=== PATIENT | male | born 1945 | race Caucasian/White ===

== ENCOUNTER → 2016-05-25 | Outpatient (CLI) | payer MEDICARE ==
[2015-10-07 12:30] VITALS: BP 110/57
[~2016-05-25] MED LIST: ACET325T9 PO; ASPI-252 PO; ASPI325T4 PO; BUDE10.22 IH; LISI-334 PO; RANI150T6 PO; TAMS0.4C97 PO
[2016-05-25 13:00] LABS: BILIRUBIN,URINE NEGATIVE (NEG); GLUCOSE,URINE NEGATIVE (NEG); NITRITE,URINE NEGATIVE (NEG); PH,URINE 5.5; PROTEIN,URINE NEGATIVE (NEG-TRACE); UROBILINOGEN,URINE 0.2 mg/dL (0.2 mg/dL)
[2016-05-25 13:09] LABS: BASO # 0.1 x10^3/uL (0.0-0.2); BASO % 1 % (0-3); EOS % 1 % (0-3); HEMATOCRIT 44.9 % (39.0-53.0); HEMOGLOBIN 14.9 g/dL (13.0-17.5); LYMPH % 28 % (24-48); MEAN CORPUSCULAR HEMOGLOBIN 31 pg (25-35); MEAN CORPUSCULAR HGB CONC 33 g/dL (31-37); MEAN CORPUSCULAR VOLUME 94 fL (79-100); MONO % 6 % (0-9); NEUT % 64 % (31-73); PLATELET COUNT 408 x10^3/uL (140-400); RED CELL DISTRIBUTION WIDTH 14.4 % (11.5-14.5); WHITE BLOOD COUNT 7.1 x10^3/uL (4.0-11.0)
[2016-05-25 13:22] LABS: BACTERIA,URINE 0 /HPF (0-FEW); RBC,URINE 0 /HPF (0-2); WBC,URINE 0 /HPF (0-4)
[2016-05-25 13:23] LABS: CALCIUM 9.8 mg/dL (8.5-10.1); CREATININE 1.4 mg/dL (0.7-1.3); POTASSIUM 4.3 mmol/L (3.5-5.1)
[2016-05-25 13:26] LABS: PROTHROMBIN TIME PATIENT 12.7 SEC (11.7-14.0)
== END | disposition home or self-care (01) ==
LOC: SURGPAT 12:11
PROVIDERS: ATTEND Urology
DX: Z01.812 Encounter for preprocedural laboratory examination (principal)
CPT/HCPCS: 36415; 80048; 81001; 85027; 85610; 85730

== ENCOUNTER 2016-06-01 10:01 | Observation (INO) | payer MEDICARE ==
[~2016-06-01] VITALS: Ht 170.2 cm; Wt 105.8 kg
[2016-06-01] VITALS (9 sets, daily range): BP systolic 99–124; BP diastolic 56–84
[~2016-06-01 10:01] MED LIST changes: +CEFTRIAXONE 1GM IVPB FOR OMNI 50 ML IV PRN; +FENTANYL PF 100 MCG/2 ML VIAL. IV PRN; +FENTANYL PF 100 MCG/2 ML VIAL. ONE; +HYDROMORPHONE 2 MG/ML VIAL. IV PRN; +IV RINGERS,LACTATED 1000ML 1,000 ML IV SCH; +LIDOCAINE 1% 1 ML SYRINGE. ID PRN; +LIDOCAINE 2% 100 MG/5 ML DISP.SYRIN. ONE; +MORPHINE SULFATE 2 MG/ML DISP.SYRIN. IV PRN; +ONDANSETRON PF 4 MG/2 ML VIAL. IV PRN; +PROCHLORPERAZINE 10 MG/2 ML VIAL. IV PRN; +PROPOFOL 20 ML IV ONE
[2016-06-01] MEDS ORDERED: SEVOFLURANE 61 TO 120 MINUTES. IH ONE (12:15)
[2016-06-01] MEDS ORDERED: DEXAMETHASONE SOD PHOS 20 MG/5 ML VIAL. ONE (12:15)
[2016-06-01] MEDS ORDERED: EPHEDRINE SULFATE 50 MG/ML VIAL. ONE (12:16)
[2016-06-01] MEDS ORDERED: PHENYLEPHRINE in 0.9% NACL PF 1 MG/10 ML DISP.SYRIN. IV ONE ×2 (12:27→12:48)
[2016-06-01] MEDS ORDERED: ONDANSETRON PF 4 MG/2 ML VIAL. ONE (12:47)
[2016-06-01] MEDS ORDERED: HYDROCODONE/APAP 5/325MG TABLET. PO PRN (13:15)
[2016-06-01] MEDS: FENTANYL PF 100 MCG/2 ML VIAL. IV PRN ×2 (13:15→13:41)
[2016-06-01] MEDS ORDERED: MAG HYDROX/AL HYDROX/SIMETH 30 ML ORAL.SUSP PO PRN (13:15)
[2016-06-01] MEDS ORDERED: NALOXONE 0.4 MG/ML VIAL. IV PRN (13:15)
[2016-06-01] MEDS ORDERED: ACETAMINOPHEN 325 MG TABLET. PO PRN (13:15)
[2016-06-01] MEDS ORDERED: ONDANSETRON PF 4 MG/2 ML VIAL. IV PRN (13:15)
[2016-06-01] MEDS ORDERED: MORPHINE SULFATE 2 MG/ML DISP.SYRIN. IV PRN (13:15)
[2016-06-01] MEDS ORDERED: MAGNESIUM HYDROXIDE 2,400 MG/30 ML ORAL.SUSP. PO PRN (13:15)
[2016-06-01] MEDS ORDERED: 0.9 % SODIUM CHLORIDE 10 ML DISP.SYRIN. IV PRN (13:15)
[2016-06-01] MEDS ORDERED: DIPHENHYDRAMINE HCL 25 MG CAPSULE PO PRN (13:15)
--- NOTE | 2016-06-01 13:18 | PDOC ---
BRIEF OPERATIVE NOTE Date: Jun 01, 2016 Pre-Op Diagnosis BPH Post-Op Diagnosis Same Procedure Performed TURP Surgeon Gold Anesthesia Type: General Blood Loss 100cc Specimens Obtained Prostate chips Findings same Complications none Additional Remarks Tolerated well RHETT SNOW DO Jun 01, 2016 13:18
[2016-06-01] MEDS: POTASSIUM CL 20MEQ-0.45% NACL 1,000 ML IV SCH (18:44)
--- NOTE | 2016-06-01 18:46 | OP ---
DATE OF SURGERY: 06/01/2016 PREOPERATIVE DIAGNOSIS: Benign prostatic hyperplasia, urinary frequency, nocturia. POSTOPERATIVE DIAGNOSIS: Benign prostatic hyperplasia, urinary frequency, nocturia. PROCEDURE: Cystoscopy, transurethral resection of prostate, TUR bladder neck. SURGEON: Rhett Snow DO. ANESTHESIA: General. ESTIMATED BLOOD LOSS: 100 mL. DRAINS: 22-Citizen Of [place] 3-way Shetty catheter to continuous bladder irrigation. INDICATIONS AND JUDGMENT: This is a 70-year-old male with a history of BPH. He has developed difficulty voiding with severe nocturia and urinary frequency. He was on maximum medical therapy and it was felt that he would benefit from transurethral resection of the prostate. The procedure was explained to the patient as well as possible risks and complications. He appeared to understand and was agreeable. DESCRIPTION OF PROCEDURE: The patient was preloaded with IV antibiotics. He was then taken to the operating room and placed on the operating room table, given a general anesthetic and then placed in a dorsolithotomy position using Juan stirrups since we do not have a cystoscopy table. Perineum and genitalia prepped and draped in sterile fashion. Rigid cystoscopy was performed. The urethra was normal course and caliber. The prostate fossa was visualized. He had an obstructing prostate gland, also median bar configuration and I was not able to advance the resectoscope through this narrow bladder opening. Therefore, I had to fit the resectoscope with a Wray knife and incise the median bar configuration at the 7 o'clock and 5 o'clock position to open the bladder neck. I was unable to use the 26-Citizen Of [place] resectoscope sheath fitted with an Redknee resectoscope and began to resect the prostate at the bladder neck down to the capsular fibers of the prostate. Bleeding vessels were coagulated as they were encountered. The resectoscope was then moved to mid prostatic fossa and in a same similar fashion, the adenomatous tissue was resected down to the capsular fibers of the prostate in a circumferential manner. I cauterized any bleeding vessels as they were encountered. The third and final stage of the resection was carried out at the apex. Careful attention was directed to the verumontanum and to the external sphincter, so as not to harm those structures. The adenomatous tissue was resected as previously described. Bleeding vessels were cauterized. I then used the [facility] evacuator to remove all the prostate chips from the bladder and these chips were sent to pathology for permanent section. Hemostasis was satisfactory. Therefore, the instruments were removed. A well-lubricated 22-Citizen [place] 3-way Shetty catheter was advanced into the urethra and into the bladder. The 20 mL balloon was filled and this was connected to continuous bladder irrigation using normal saline. The patient tolerated the procedure well. RHETT SNOW DO DR: NANCY/elise JOB#: [id number] / [id number]
[2016-06-01] MEDS: BUDESONIDE 0.5 MG/2 ML NEBU NEB SCH (19:55)
[2016-06-01] MEDS: ALBUTEROL SULFATE 2.5 MG/3 ML NEBU. NEB SCH (19:55)
[2016-06-01] MEDS ORDERED: NON FORMULARY ITEM (Budesonide/Formoterol Fumarate (Symbicort 80-4.5 Mcg Inhaler) 2 PUFF) IH SCH (21:00)
[2016-06-01] MEDS ORDERED: TAMSULOSIN 0.4 MG CAP.ER.24H. PO SCH (21:00)
[2016-06-01] MEDS: DOCUSATE SODIUM 100 MG CAPSULE PO SCH (21:56)
[2016-06-02 03:00] VITALS: BP 104/66
[2016-06-02 05:07] LABS: BASO % 0 % (0-3); EOS % 0 % (0-3); HEMATOCRIT 39.2 % (39.0-53.0); HEMOGLOBIN 12.8 g/dL (13.0-17.5); LYMPH % 8 % (24-48); MEAN CORPUSCULAR HEMOGLOBIN 31 pg (25-35); MEAN CORPUSCULAR HGB CONC 33 g/dL (31-37); MEAN CORPUSCULAR VOLUME 96 fL (79-100); MONO % 4 % (0-9); NEUT % 88 % (31-73); PLATELET COUNT 375 x10^3/uL (140-400); RED BLOOD COUNT 4.09 x10^6/uL (4.30-5.70); RED CELL DISTRIBUTION WIDTH 14.3 % (11.5-14.5); WHITE BLOOD COUNT 12.2 x10^3/uL (4.0-11.0)
[2016-06-02 05:33] LABS: CREATININE 1.2 mg/dL (0.7-1.3); GFR 59.7; POTASSIUM 5.1 mmol/L (3.5-5.1)
[2016-06-02] MEDS ORDERED: LEVOFLOXACIN 500 MG TABLET PO SCH (06:00)
[2016-06-02 07:00] VITALS: BP 120/73
[2016-06-02] MEDS: ALBUTEROL SULFATE 2.5 MG/3 ML NEBU. NEB SCH ×3 (07:53→15:19)
[2016-06-02] MEDS: BUDESONIDE 0.5 MG/2 ML NEBU NEB SCH (07:53)
[2016-06-02] MEDS: DOCUSATE SODIUM 100 MG CAPSULE PO SCH (08:36)
[2016-06-02] MEDS: POTASSIUM CL 20MEQ-0.45% NACL 1,000 ML IV SCH (08:37)
--- NOTE | 2016-06-02 08:43 | PDOC ---
Provider Note Provider Note Urology: POD#1 urine clear, vitals stable, neg complaints IMPRESSION: good post op progress Plan: D/C bennett, IV possible home later today RHETT SNOW DO Jun 02, 2016 08:43
[2016-06-02 08:46] LABS: PLT ESTIMATE ADEQUATE (ADEQUATE)
[2016-06-02] MEDS ORDERED: LISINOPRIL 10 MG TABLET PO SCH (09:00)
[2016-06-02 11:00] VITALS: BP 124/69
--- NOTE | 2016-06-02 13:51 | PATHOLOGY ---
PATHOLOGY REPORT * * * * * * * * FINAL DIAGNOSIS: Prostate tissue, transurethral resection: - Nodular prostatic glandular and stromal hyperplasia. COMMENT: There is no evidence of malignancy. (JPM:csd; d/t: 06/02/2016) REPORT ELECTRONICALLY SIGNED BY: Elias Priest M.D. DATE/TIME: 06/02/2016 13:50 * * * * * * * * GROSS PATHOLOGY: The specimen is received in formalin, labeled "Remi Lugo and prostate chips." Received is a 12 g, 7.8 x 6.3 x 1.0 cm aggregate of pink-torres, focally cauterized, and rubbery soft tissue fragments. The specimen is entirely submitted in cassettes A1-A6. (TTL; 06/01/2016) INITIAL CPT CODE(S): A; 13605 Professional services performed by [facility] [address] Technical services performed by [facility] at [address] [place] [address], [address], [place] [address]. SPECIMEN(S) RECEIVED: Cesar.Prostate chips CLINICAL HISTORY: Urinary frequency, nocturia PATIENT: REMI LUGO /AGE: 4 1945 (Age: 70) PATIENT #: [id number] ALT CASE #: SPECIMEN COLLECTION DATE: 06/01/2016 SPECIMEN RECEIVED DATE: 06/01/2016 [facility] - [address] [place] [address] - PHONE: [phone] * * * END OF REPORT * * *
--- NOTE | 2016-06-02 15:19 | PDOC ---
Provider Note Provider Note Urology: voiding without problems, urine color good Path: pending Plan: home Rx Cipro, Lortab 5 instructions given f/u 3 weeks in office RHETT SNOW DO Jun 02, 2016 15:19
--- NOTE | 2016-06-02 15:22 | DISCH ---
DISCHARGE INSTRUCTIONS Condition on Discharge Condition on Discharge: Stable Activity After Discharge Activity Instructions for Disc: Avoid exertion Lifting Instructions after Dis: No heavy lifting Sexual Activity Restrictions: not for 6 weeks Diet after Discharge Diet after Discharge: Regular Additional Diet Restrictions: Hold Aspirin for 2 weeks Wound Incision Care Other wound/incision instructi: drink 6 12oz glasses of water daily Contacting the after DC Call your doctor for: Concerns you may have Follow-Up Follow up with: Dr Snow in 3 weeks RHETT SNOW DO Jun 02, 2016 15:22
--- NOTE | 2016-06-02 15:28 | PDOC ---
Provider Note Provider Note Discharge summary dictated. RHETT SNOW DO Jun 02, 2016 15:28
--- NOTE | 2016-06-02 19:16 | DS ---
DATE OF DISCHARGE: 06/02/2016 FINAL DIAGNOSES: 1. Benign prostatic hyperplasia. 2. Difficulty voiding. SECONDARY DIAGNOSIS: Hypertension. HOSPITAL COURSE: This is a summary of the patient's hospital course. Well documented history and physical can be found within the body of the chart. Briefly, this 70-year-old male was having extreme urinary frequency and difficulty voiding. He underwent evaluation in the office, was found to have an enlarged prostate with visual obstruction of bladder outlet. It was felt that he would benefit from transurethral resection of prostate. The procedure was explained to the patient. He appeared to understand and was agreeable. The patient was brought to the hospital on 06/01/2016. He underwent transurethral resection of the prostate under general anesthesia. He tolerated the procedure well. At the conclusion, a 22-[place] 3-way Shetty catheter was left in place connected to continuous bladder irrigation. The patient was placed in observation bed. Overnight, he had no problems or difficulties. The following morning on 06/02/2016, the urine was clear. Therefore, his Shetty catheter was removed for a voiding trial. Later that afternoon, the patient was voiding satisfactorily. He only had a slight color to the urine. He had a good strong stream and was voiding satisfactorily; therefore, it was felt that he could go home. The patient was given discharge instructions with respect to diet and activity. He will resume all his home meds except for aspirin. He was given a prescription for Cipro 500 mg p.o. b.i.d. for 5 days. Also, he requested a prescription for hydrocodone for his occasional headache. The patient was instructed to follow up with me in the office in 3 weeks. His pathology report is pending. His condition upon discharge was satisfactory. RHETT SNOW DO DR: NANCY/elise JOB#: [id number] / [id number]
== END 2016-06-03 20:58 | disposition home or self-care (01) ==
LOC: SURG 10:01 → 4 NORTH 13:46
PROVIDERS: ADMIT Urology; ATTEND Urology
DX: N40.1 Benign prostatic hyperplasia with lower urinary tract symptoms (principal); R35.0 Frequency of micturition; R35.1 Nocturia; I10 Essential (primary) hypertension; N32.0 Bladder-neck obstruction
CPT/HCPCS: 36415; 52601; 80048; 85007; 85027; 88305; 94250; 94640; 94760; G0378; G0379; J0690; J1100; J2370; J2405; J2704; J3010; J7120

== ENCOUNTER → 2018-06-04 | Outpatient (CLI) | payer MEDICARE ==
[~2018-06-04] MED LIST changes: -ASPI325T4 PO; +ASPI325T8 PO; +BUDE10.2 IH; -CEFTRIAXONE 1GM IVPB FOR OMNI 50 ML IV PRN; +CELE200C PO; -FENTANYL PF 100 MCG/2 ML VIAL. IV PRN; -FENTANYL PF 100 MCG/2 ML VIAL. ONE; +FINA5TAB4 PO; -HYDROMORPHONE 2 MG/ML VIAL. IV PRN; -IV RINGERS,LACTATED 1000ML 1,000 ML IV SCH; -LIDOCAINE 1% 1 ML SYRINGE. ID PRN; -LIDOCAINE 2% 100 MG/5 ML DISP.SYRIN. ONE; +MELO15TA6 PO; -MORPHINE SULFATE 2 MG/ML DISP.SYRIN. IV PRN; -ONDANSETRON PF 4 MG/2 ML VIAL. IV PRN; -PROCHLORPERAZINE 10 MG/2 ML VIAL. IV PRN; -PROPOFOL 20 ML IV ONE; +RANI-376 PO; -RANI150T6 PO; +TRAM50TA PO
--- NOTE | 2018-06-04 15:37 | KCIC ---
EXAM: MRI RIGHT SHOULDER WITHOUT CONTRAST DATE: 06/04/2018 2:00 PM COMPARISON: Shoulder radiographs 06/03/2018 INDICATION: Right shoulder pain, decreased range of motion. Popping sensation with motion. TECHNIQUE: Multiplanar, multisequence MR imaging of the right shoulder was performed without IV contrast. Specifically coronal and sagittal T1/T2 FS and PD FS axial images of the right shoulder were obtained. FINDINGS: Mild AC joint degenerative changes are seen with small associated osteophytes. Type I acromion with associated acromial remodeling from articulation with the high riding humeral head. Subacromial-subdeltoid bursal distention from bursitis and full-thickness rotator cuff tear. There is a full-thickness, full width tear of the supraspinatus tendon and full-thickness, full width tear of the infraspinatus tendon, with retraction to the level of the AC joint (just lateral to the glenoid). In AP dimension this tear measures approximately 4.7 cm. Moderate increased signal and thickening of the subscapularis tendon, consistent with tendinosis, without evidence for tear. Mild to moderate atrophy of the supraspinatus and infraspinatus muscle bellies with only mild fatty conversion. Moderate to severe fatty atrophy of the teres minor muscle belly however no definite mass is seen within the quadrilateral space. No discrete labral tear is identified. The extra-articular long head biceps is seen within the bicipital groove, without evidence for dislocation. There is increased signal and thickening of the intra-articular segment of the long head biceps tendon consistent with moderate tendinosis. No evidence for AVN or fracture. IMPRESSION: 1. Full-thickness, full width tear of the supraspinous infraspinatus tendons with retraction to the AC joint (just lateral to the glenoid). This measures approximately 4.7 cm in AP dimension. Associated atrophy of the supraspinatus and infraspinatus muscle bellies. 2. Moderate to severe fatty atrophy of the teres minor muscle belly although the tendon is grossly intact and there is no mass identified within the quadrilateral space. 3. Moderate intra-articular biceps tendinosis. Electronically signed by: Stone Peacock MD (06/04/2018 3:32 PM) [id number]
== END | disposition home or self-care (01) ==
LOC: KCIC MRI 13:11
PROVIDERS: ATTEND Orthopaedic Surgery
DX: M75.21 Bicipital tendinitis, right shoulder (principal); M75.101 Unspecified rotator cuff tear or rupture of right shoulder, not specified as traumatic; M62.511 Muscle wasting and atrophy, not elsewhere classified, right shoulder; M19.011 Primary osteoarthritis, right shoulder; M25.711 Osteophyte, right shoulder; M75.51 Bursitis of right shoulder
CPT/HCPCS: 73221

== ENCOUNTER → 2018-06-24 | Outpatient (CLI) | payer MEDICARE ==
[~2018-06-24] MED LIST changes: -CELE200C PO; -MELO15TA6 PO; -RANI-376 PO; +RANI150T21 PO
--- NOTE | 2018-06-24 10:04 | EKG ---
[facility] [address] [place] [address] Test Date: 2018-06-24 Test Time: 10:02:20 Pat Name: VINITA NATION Department: Room: Gender: M [place]: : 1945 Requested By: KAVYA LUTZ Order Number: [id number] Reading MD: Taco Zapata MD Measurements Intervals [place] Rate: 54 P: 0 PA: 138 QRS: 19 QRSD: 94 T: 40 QT: 374 QTc: 356 Interpretive Statements SINUS RHYTHM Electronically Signed On 06-25-2018 10:37:59 [employer] ARCHITECT by Taco Zapata MD
[2018-06-24 10:28] LABS: BASO % 1 % (0-3); EOS % 1 % (0-3); HEMATOCRIT 41.8 % (39.0-53.0); HEMOGLOBIN 13.5 g/dL (13.0-17.5); LYMPH # 1.1 x10^3/uL (1.0-4.8); LYMPH % 14 % (24-48); MEAN CORPUSCULAR HEMOGLOBIN 32 pg (25-35); MEAN CORPUSCULAR HGB CONC 32 g/dL (31-37); MEAN CORPUSCULAR VOLUME 98 fL (79-100); MONO # 0.4 x10^3/uL (0.0-1.1); MONO % 6 % (0-9); NEUT # 6.1 x10^3uL (1.8-7.7); NEUT % 79 % (31-73); PLATELET COUNT 397 x10^3/uL (140-400); RED BLOOD COUNT 4.28 x10^6/uL (4.30-5.70); RED CELL DISTRIBUTION WIDTH 14.1 % (11.5-14.5); WHITE BLOOD COUNT 7.7 x10^3/uL (4.0-11.0)
[2018-06-24 10:38] LABS: ALBUMIN 3.8 g/dL (3.4-5.0); CALCIUM 9.5 mg/dL (8.5-10.1); CREATININE 1.4 mg/dL (0.7-1.3); GFR 49.7; POTASSIUM 4.4 mmol/L (3.5-5.1)
[2018-06-24 10:46] LABS: BILIRUBIN,URINE NEGATIVE (NEG); CLARITY,URINE CLEAR; COLOR,URINE YELLOW; NITRITE,URINE NEGATIVE (NEG); PH,URINE 5.5; PROTEIN,URINE NEGATIVE (NEG-TRACE); UROBILINOGEN,URINE 0.2 mg/dL (0.2 mg/dL)
[2018-06-24 10:48] LABS: PROTHROMBIN TIME PATIENT 12.9 SEC (11.7-14.0)
--- NOTE | 2018-06-24 11:10 | RAD ---
CHEST PA LATERAL CLINICAL INDICATION: PRE OP... HX OF HYPERTENSION, HX OF HYPERLIPIDEMIA COMPARISON: 08/21/2013 FINDINGS: Heart is normal in size. Mild stable left lung base patchy opacity most likely prominent epicardial fat pad. No focal consolidation. No pneumothorax or pleural effusion. Visualized bony thorax is within normal limits. IMPRESSION: No acute pulmonary process. Electronically signed by: Ld Castillo DO (06/24/2018 11:06 AM) [id number]
[2018-06-24 11:39] LABS: RBC,URINE 0 /HPF (0-2); SQUAMOUS EPITHELIAL CELL,UR FEW /LPF; WBC,URINE OCC /HPF (0-4)
[2018-06-24 11:40] LABS: BACTERIA,URINE FEW /HPF (0-FEW)
--- NOTE | 2018-07-01 14:37 | NUR ---
FAXED PRE - OP TEST REPORTS TO - PCP AT 9033 AND 'S OFFICE AT 7763 06/25/2018 AND RECEIVED TRANSMITTAL CONFIRMATIONS IN BOTH OFFICES.
--- NOTE | 2018-07-01 14:56 | NUR ---
PATIENT'S MEDICAL CLEARANCE NOTES FROM WAS RECEIVED 06/26/2018 FROM CYRUS STEEN OF .
== END | disposition home or self-care (01) ==
LOC: SURGPAT 08:45
PROVIDERS: ATTEND Orthopaedic Surgery Sports Medicine
DX: Z01.818 Encounter for other preprocedural examination (principal); M19.011 Primary osteoarthritis, right shoulder; I10 Essential (primary) hypertension; E78.5 Hyperlipidemia, unspecified
CPT/HCPCS: 36415; 71046; 80048; 81001; 82040; 85025; 85610; 85651; 85730; 87641; 93005

== ENCOUNTER 2021-08-09 06:44 | Outpatient (CLI) | payer MEDICARE ==
[2021-08-09] VITALS (13 sets, daily range): BP systolic 90–131; BP diastolic 51–78
[~2021-08-09] VITALS: Ht 172.7 cm; Wt 102.2 kg
[~2021-08-09 06:44] MED LIST changes: +CELE200C PO; -LISI-334 PO; +LISI20TA18 PO; +MELO15TA6 PO; +RANI-376 PO; -RANI150T21 PO
[2021-08-09 07:34] LABS: HEMOGLOBIN 12.1 g/dL (13.0-17.5); RED BLOOD COUNT 3.65 x10^6/uL (4.30-5.70); RED CELL DISTRIBUTION WIDTH 13.6 % (11.5-14.5); WHITE BLOOD COUNT 5.5 x10^3/uL (4.0-11.0)
[2021-08-09 07:40] LABS: CALCIUM 9.5 mg/dL (8.5-10.1); CREATININE 1.7 mg/dL (0.7-1.3); GFR 39.4; POTASSIUM 4.4 mmol/L (3.5-5.1)
[2021-08-09] MEDS ORDERED: LIDOCAINE 1% Multi-Dose 20 ML VIAL. ONE (07:40)
[2021-08-09] MEDS ORDERED: HEPARIN for ARTERIAL LINE 1,500 ML ONE (07:40)
[2021-08-09] MEDS ORDERED: IODIXANOL 320 MG/ML 100 ML VIAL. ONE (07:40)
[2021-08-09] MEDS ORDERED: ATOR20TA58 PO (08:14)
[2021-08-09] MEDS ORDERED: FURO40TA4 PO (08:14)
[2021-08-09] MEDS ORDERED: OXYB10TA26 PO (08:14)
[2021-08-09] MEDS ORDERED: DILT120C99 PO (08:14)
[2021-08-09] MEDS ORDERED: CYAN500T17 PO (08:14)
[2021-08-09] MEDS ORDERED: FINA5TAB4 PO (08:14)
[2021-08-09] MEDS ORDERED: FAMO20TA5 PO (08:14)
[2021-08-09] MEDS ORDERED: HEPARIN for IV BOLUS 10,000 UNIT/10 ML VIAL. ONE (08:25)
[2021-08-09] MEDS ORDERED: MIDAZOLAM HCL/PF 2 MG/2 ML VIAL. ONE (08:25)
[2021-08-09] MEDS ORDERED: VERAPAMIL 5 MG/2 ML VIAL. ONE (08:25)
[2021-08-09] MEDS ORDERED: fentaNYL PF VIAL 100 MCG/2 ML VIAL ONE (08:25)
[2021-08-09] MEDS ORDERED: NITROGLYCERIN 200 MCG/2 ML SYRINGE FOR CATH/VASC LAB. ONE (08:26)
[2021-08-09] MEDS ORDERED: MIDAZOLAM HCL/PF 2 MG/2 ML VIAL. IV ONE (09:15)
[2021-08-09] MEDS ORDERED: IODIXANOL 320 MG/ML 100 ML VIAL. IART ONE (09:15)
[2021-08-09] MEDS ORDERED: VERAPAMIL 5 MG/2 ML VIAL. IART ONE (09:15)
[2021-08-09] MEDS ORDERED: IV NORMAL SALINE 1000ML BAG 1,000 ML IV ONE (09:15)
[2021-08-09] MEDS ORDERED: fentaNYL PF VIAL 100 MCG/2 ML VIAL IV ONE (09:15)
[2021-08-09] MEDS ORDERED: NITROGLYCERIN 200 MCG/2 ML SYRINGE FOR CATH/VASC LAB. IART ONE (09:15)
[2021-08-09] MEDS ORDERED: HEPARIN for IV BOLUS 10,000 UNIT/10 ML VIAL. IART ONE (09:15)
[2021-08-09] MEDS ORDERED: LIDOCAINE 1% Multi-Dose 20 ML VIAL. INJ ONE (09:15)
[2021-08-09] MEDS ORDERED: CONTRAST GIVEN. MC PRN (09:30)
--- NOTE | 2021-08-09 09:53 | CARD ---
MR#: [id number] Date of Study: 08/09/2021 Ordering Physician: VINNY ZAPATA, Referring Physician: VINNY ZAPATA, Tech: RICHARD SMITH APPROVED REPORT Technologist: RICHARD SMITH Nurse: Prudence Calzada RN Procedure(s) performed: MODERATE SEDATION TIME:44 MIN FLUORO TIME: 6.0 MIN DOSE:47 GYCM2 CONTRAST: 24CC VISI RHC, LHC, Coronary angiography HISTORY hypertension: dyslipidemia. INDICATION The indication(s) include : unstable angina , dyspnea. [facility] Clinical Frailty Scale [facility] Clinical Frailty Scale: Moderately Frail Heart Failure Heart Failure: Yes If Yes, Newly Diagnosed: Yes If Yes, HF Type: Diastolic If Yes, NYHA Class: Class II CASE TECHNIQUE IV conscious sedation was used throughout procedure with appropriate monitoring and was performed in the presence of a registered nurse who was an independent trained observer other than the physician p erforming the procedure. During this case, Fluoroscopy and low osmolar contrast were used for imaging . Specimen(s) Removed: N/A Estimated Blood loss: 15 cc's. PROCEDURE NARRATIVE Clinical information: 75-year-old male who was seen in the office due to persistent exertional dyspnea and despite adequate medical therapy he was having continued symptoms and therefore he was taken to the catheterization l aboratory for further evaluation and treatment. Procedure details: After appropriate informed consent the right arm and wrist were prepped and draped in usual sterile f ashion. Under 1% lidocaine local anesthesia a 6 Portuguese sheath was placed in the right radial artery. Next, a 5 Portuguese sheath was placed in the right brachial vein via the modified Seldinger technique with ultrasound guidance. Next, 6 Portuguese TIG catheter was used to perform diagnostic coronary angio graphy. Left ventricular end-diastolic pressure was obtained with a TIG catheter and a pullback was performed. A 5 Portuguese PA catheter was advanced to the right heart chambers and pressures and saturat ions were obtained. At case completion all catheters and sheaths were removed and hemostasis was ach ieved via manual compression in the brachial vein site and a Terumo radial band at the right radial a rterial site. No acute complications. Findings: Aorta 80/40 LVEDP 8 mmHg No LV to aortic pullback gradient Right heart catheterization RA 7 mmHg RV 31/5/12 PA 26/11/17 Wedge 10 mmHg FA saturation 96% PA saturation 79% Chong cardiac output 8.6 L/min Chong cardiac index 4.0 Coronary angiography: Left main is a long large caliber vessel with normal angiographic appearance LAD is a moderate caliber vessel with normal angiographic appearance Left circumflex is a large-caliber vessel with normal angiographic appearance RCA is a moderate to large caliber vessel with normal angiographic appearance Conclusion 1. Normal biventricular filling pressures 2. No evidence of pulmonary pretension 3. Normal cardiac output 4. No significant coronary artery disease Recommendations 1. Continue current medical therapy including Lasix as needed only. 2. Follow-up with primary care physician for consideration of evaluation of pulmonary causes of dysp manuel and start exercise regimen. Signed by : Vinny Zapata, Electronically Approved : 08/09/2021 09:53:22
--- NOTE | 2021-08-09 11:39 | NUR ---
Discharge Note: VINITA NATION Discharge instructions and discharge home medications reviewed with Patient and a copy given. All questions have been answered and understanding verbalized. The following instructions and handouts were given: radial site care,incision care,and adult moderate sedation Discontinued lines and drains: Peripheral IV intact. Patient discharged to Home or Self Care withSpousevia Wheelchair
== END 2021-08-09 11:45 | disposition home or self-care (01) ==
LOC: CCL 06:44
PROVIDERS: ATTEND Internal Medicine Cardiovascular Disease
DX: I20.0 Unstable angina (principal); R06.09 Other forms of dyspnea; R06.02 Shortness of breath; E78.00 Pure hypercholesterolemia, unspecified; J44.9 Chronic obstructive pulmonary disease, unspecified; E66.9 Obesity, unspecified; I12.9 Hypertensive chronic kidney disease with stage 1 through stage 4 chronic kidney disease, or unspecified chronic kidney disease; N18.30 Chronic kidney disease, stage 3 unspecified; K21.9 Gastro-esophageal reflux disease without esophagitis; N40.0 Benign prostatic hyperplasia without lower urinary tract symptoms; M19.90 Unspecified osteoarthritis, unspecified site; Z79.82 Long term (current) use of aspirin; Z79.899 Other long term (current) drug therapy; Z98.890 Other specified postprocedural states; Z87.891 Personal history of nicotine dependence; Z72.89 Other problems related to lifestyle
CPT/HCPCS: 36415; 76937; 80048; 85027; 85610; 93460; 99152; 99153; C1769; C1773; C1894; J1644; J2250; J3010; J3490; J7030; Q9967